=== PATIENT | male | born 1965 | race Caucasian/White ===

== ENCOUNTER 2017-07-07 06:24 | Day surgery (SDC) | payer OTHER ==
[~2017-07-07] VITALS: Ht 177.8 cm; Wt 83.0 kg
[2017-07-07] MEDS ORDERED: LIPITOR40 MG PO (06:35)
[2017-07-07] MEDS ORDERED: LISINOPRIL20 MG PO (06:35)
[2017-07-07] MEDS ORDERED: DEPO-TESTO100 MG/1 M IM (06:36)
--- NOTE | 2017-07-07 08:34 | NUR ---
[facility]07[facility]17 [facility]34 [facility] PACU SLEEPY WITH NO C/O'S. 0820 PASSING FLATUS.
--- NOTE | 2017-07-08 09:12 | OR ---
[facility] [address], [place] [address] Signed DATE OF OPERATION: SURGEON: Lucio García MD PREOPERATIVE DIAGNOSIS: Colon screening. POSTOPERATIVE DIAGNOSIS: Diminutive polyp at 20 cm (excised and internal hemorrhoid x1). PROCEDURE: Total colonoscopy to cecum with cold morcellation polypectomy x1. ANESTHESIA: Intravenous sedation, fentanyl 150 mcg, Versed 5 mg. INDICATION: A 52-year-old white man has no primary physician, is self-referred for consideration of screening colonoscopy. He has no symptoms and no family history of colon cancer that he is aware of. He had a relatively young friend, who was recently diagnosed with advanced colon cancer, which motivates him for colon screening of his own at age 52. He understands the risks of bleeding, infection, and perforation related to colonoscopy and wished to proceed. FINDINGS: The prep was excellent. Complete colonoscopy was undertaken to the cecum without question. There was 1 diminutive polyp, probably hyperplastic at 20 cm, which was excised and 1 internal hemorrhoid, which showed no evidence of bleeding or thrombosis. DESCRIPTION OF PROCEDURE: The patient was brought to the endoscopy suite, placed in lateral decubitus position, given intravenous sedation to the point of slurred speech and nystagmus. Digital rectal examination was normal. An Olympus video colonoscope was passed in the rectum and manipulated throughout the colon, ultimately intubating the cecum. The ileocecal valve and appendiceal orifice were normal. The scope was withdrawn from that point. Examination throughout showed no sign of abnormality until approximately 20 cm from the anal verge where a diminutive polyp was noted. This was excised with a single morcellation bite with a biopsy forceps. Further withdrawal of scope showed no other abnormality. Retroflexed view showed an internal hemorrhoid without sign of bleeding or other problems. The scope was removed. The patient was taken to recovery room in good condition. Electronically Signed By: LUCIO GARCÍA MD 07/08/17 0912 PATIENT NAME: ELISEO CARRASCO OPERATIVE REPORT DATE OF : 69 PHYSICIAN: LUCIO GARCÍA MD REPORT #: [id number] REPORT IS CONFIDENTIAL AND NOT TO BE RELEASED WITHOUT AUTHORIZATION [facility] [address], [place] [address] Signed CONCLUDING DIAGNOSES: 1. Diminutive polyp at 20 cm, excised. 2. Internal hemorrhoids x1. PLAN: Recommend high-fiber diet and repeat colonoscopy in 10 years, sooner if clinically indicated. He will return as needed. MD EDGAR Veras/MODL /[id number] Electronically Signed By: LUCIO GARCÍA MD 07/08/17 0912 PATIENT NAME: ELISEO CARRASCO OPERATIVE REPORT DATE OF : 69 PHYSICIAN: LUCIO GARCÍA MD REPORT #: [id number] REPORT IS CONFIDENTIAL AND NOT TO BE RELEASED WITHOUT AUTHORIZATION
== END 2017-07-07 08:47 | disposition home or self-care (01) ==
LOC: DS 06:24 → OPS 06:24 → DS 06:45 → OPS 06:45
PROVIDERS: Surgery
PROC: 0DBE8ZX Excision of Large Intestine, Via Natural or Artificial Opening Endoscopic, Diagnostic (ICD-10-PCS; principal; 2017-07-07 06:45)
DX: Z12.11 Encounter for screening for malignant neoplasm of colon (principal); K63.5 Polyp of colon; K64.8 Other hemorrhoids; I10 Essential (primary) hypertension; F17.290 Nicotine dependence, other tobacco product, uncomplicated; Z98.890 Other specified postprocedural states
CPT/HCPCS: 99153; G0500; J2250; J3010; J7120

== ENCOUNTER 2021-04-05 06:20 | Day surgery (SDC) | payer OTHER ==
[~2021-04-05] VITALS: Ht 177.8 cm; Wt 77.3 kg
--- NOTE | ~2021-04-05 | OR ---
[facility] [address], [place] [address] Draft DATE OF OPERATION: 04/05/2021 SURGEON: Santiago Shelton MD PREOPERATIVE DIAGNOSES: Right-sided nasal and sinus polyposis, deviated nasal septum, and nasal obstruction. POSTOPERATIVE DIAGNOSES: Right-sided nasal and sinus polyposis, deviated nasal septum, and nasal obstruction. PROCEDURES: 1. Right-sided endoscopic frontal ethmoidectomy, 98405. 2. Nasal septoplasty, 32683. 3. Right maxillary antrostomy with removal of polyps and soft tissue, 13882 was endoscopic. 4. Endoscopic right sphenoidotomy, 18157. INDICATIONS: This 56-year-old gentleman has suffered right-sided nasal obstruction for many years. He had some ancient trauma to his nose, but in the last year, especially patient has lost his sense of smell, which has been a gradual thing, not associated with COVID and tremendous congestion in fact cannot breathe through his nose at all, even the left side. The CT scan following a physical exam demonstrated some massive polyposis which was filling up the nasopharynx even blocking of the patient's left nasal airway, but also showing disease in the sphenoid, frontal, maxillary sinus but there were a lot of polyps in the maxillary sinus as well. It looked much like a nasal antral polyp of very large in size. The patient had no associated bony destruction noted on the CT scan and no history of bleeding. The surgical procedure was indicated not only to help the patient breathe better and help the sinuses drain and not being chronically infected but also for biopsy purposes. PROCEDURE IN DETAIL: The patient was placed in the supine position, had an orotracheal intubation was placed under general anesthesia. No work could be done on the right side until the septum was moved over. It had a zig and a zag basically spur on the left and high deviation totally bony and cartilaginous on the right. Incision was made on the right side at the junction with the floor of the nose and the septum after injecting 3 mL of lidocaine 1%, 1:200,000 epinephrine and 2 mL of 0.5% Marcaine 1:200,000 epinephrine. The submucoperichondrial plane of dissection was established and then lifting that up over and angulation onto the bony septum. The Arenac D knife bone from the PATIENT NAME: ELISEO CARRASCO OPERATIVE REPORT DATE OF : 69 REPORT #: [id number] PHYSICIAN: SANTIAGO SHELTON MD PCP: SHADY COOLEY MD REPORT IS CONFIDENTIAL AND NOT TO BE RELEASED WITHOUT AUTHORIZATION [facility] [address], [place] [address] Draft cartilage and then contralateral elevation done with the blunt end of the Cristopher dissection tool. Alanis scissors were used to cut this deviated piece of bone and some deviation of the septum was also removed with a Cristopher D knife leaving the crucial L strut for nasal tip support. Basting stitch was then used to bring the flaps together. An anterior incision closed with a couple of stitches of 4-0 gut. Having opened up the right side for endoscopic purview, it was photographed endoscopically. Then, a partial anterior inferior portion of the middle turbinate was trimmed away, which was very polypoid. The uncinate process was incised with a sickle knife and then the maxillary sinus was opened. The natural ostium was widened in both the posterior and anterior fontanelle. This allowed the 70 degree scope to be inserted to remove polyps and cysts out of the maxillary sinus with various forceps, microdebrider with a curved blade and frontal sinus forceps which could reach all the way down in the bottom. Then it was discovered that this polyp in the nasopharynx did not originate from the maxillary sinus. It was removed both with Harleen forceps as well as with microdebrider with a filter and screen. All contents were sent for examination under microscope. This polyp was based somewhat in the superior meatus, but also on the lateral wall of the nose posteriorly. The tissue was actually removed from the superior portion of the nasopharynx in the lateral wall and then the posterior wall possibly could have been a tumor of Rathke's pouch. There were no large vessels in it whatsoever and entirely removed until there was no more obstruction within the nasopharynx or the contralateral choana. Suction cautery was used to produce hemostasis on that. There were polyps in the ethmoids and in the sphenoid sinus. These things were removed doing a complete ethmoidectomy going air cell by air cell with Thru-Cut ethmoid punch. The frontal recess was opened up with using a 70 degree scope to be directed into the frontal sinus with the beak of the frontal sinus removed with the Kerrison frontal sinus punch and careful dissection trying not to strip mucosa out of the bottleneck of the frontal sinus. Then, the sphenoid sinus was opened posteriorly, removed going first of all through the superior meatus and ascertaining its dimensions. Then going transethmoid into the sphenoid and opening up very large sphenoid sinus, which was the major sinus or the two sphenoid cells. Estimated blood loss was between 100 and 125 mL. Nasopore was the only thing placed into the sinus labyrinth to help to prevent any lateralization of middle turbinate remnant. The patient did well, went to recovery room in good condition. Santiago Shelton MD [facility] /[id number] PATIENT NAME: ELISEO CARRASCO OPERATIVE REPORT DATE OF : 69 REPORT #: [id number] PHYSICIAN: SANTIAGO SHELTON MD PCP: SHADY COOLEY MD REPORT IS CONFIDENTIAL AND NOT TO BE RELEASED WITHOUT AUTHORIZATION [address] [address] Draft Copies: ~ PATIENT NAME: ELISEO CARRASCO OPERATIVE REPORT DATE OF : 69 REPORT #: [id number] PHYSICIAN: SANTIAGO SHELTON MD PCP: SHADY COOLEY MD REPORT IS CONFIDENTIAL AND NOT TO BE RELEASED WITHOUT AUTHORIZATION
[~2021-04-05 06:20] MED LIST: DEPO-TESTO100 MG/1 M IM; LIPITOR40 MG PO; LISINOPRIL20 MG PO
--- NOTE | 2021-04-05 09:42 | NUR ---
04/05/21 0942 Leena Malave 0944 PATIENT ARRIVES TO PACU UNRESPONSIVE TO PAIN. ORAL AIRWAY IN PLACE. RESP EVEN AND UNLABORED, MASK AT 6 LITERS.
--- NOTE | 2021-04-05 10:38 | NUR ---
1030 PT BACK TO ROOM FROM PACU DROWSY, IS AT BEDSIDE. PT TAKING SIPS OF WATER TOLERATES WELL.
--- NOTE | 2021-04-05 11:52 | NUR ---
1115 PT WALKED TO BATHROOM WITH MINIMAL ASSIST. HE WAS ABLE TO VOID A GOOD AMOUNT OF CLEAR YELLOW URINE, PT BACK TO BED, HE REQUESTED JELLO, TOLERATED WELL DENIES NAUSEA OR PAIN.
== END 2021-04-05 11:45 | disposition home or self-care (01) ==
LOC: DS 06:20
PROVIDERS: ATTEND Otolaryngology
PROC: 09SM4ZZ Reposition Nasal Septum, Percutaneous Endoscopic Approach (ICD-10-PCS; 2021-04-05)
PROC: 099W8ZZ Drainage of Right Sphenoid Sinus, Via Natural or Artificial Opening Endoscopic (ICD-10-PCS; principal; 2021-04-05 06:45)
PROC: 09BU4ZZ Excision of Right Ethmoid Sinus, Percutaneous Endoscopic Approach (ICD-10-PCS; 2021-04-05 06:45)
DX: J33.8 Other polyp of sinus (principal); J34.2 Deviated nasal septum; J34.89 Other specified disorders of nose and nasal sinuses; Z88.8 Allergy status to other drugs, medicaments and biological substances
CPT/HCPCS: 00160; J0330; J1100; J2001; J2250; J2405; J2704; J7040; J7121